=== PATIENT | male | born 1935 | race Caucasian/White ===

== ENCOUNTER 2019-04-22 09:04 | Emergency (ER) | payer MEDICARE, OTHER ==
[~2019-04-22] VITALS: Ht 177.8 cm; Wt 73.6 kg
[2019-04-22 09:06] VITALS: Ht 177.8 cm; Wt 73.6 kg
[2019-04-22] MEDS ORDERED: LIDOCAINE 2% JEL.PF.APP 5 ML UROJET SYRINGE MM ONE (09:30)
[2019-04-22] MEDS ORDERED: CIPR500T4 PO (09:57)
[2019-04-22 10:10] VITALS: BP 118/58; PULSE 88; RESP 16
--- NOTE | 2019-04-22 11:20 | ERD ---
ER Documentation Chief Complaint Chief Complaint unable to urinate since 0100 HPI Patient is an 83-year-old male with a history of prostate issues who presents with being unable to urinate. Since 1 PM yesterday he has had difficulty with urination. Today he cannot pee. The son does says that he is getting out "a little dribble" but feels like he cannot empty his bladder. He has no pain and no fevers. He does have a primary doctor and a urologist. ROS All systems reviewed and are negative except as per history of present illness. Medications Home Meds Active Scripts Ciprofloxacin Hcl* (Ciprofloxacin Hcl*) 500 Mg Tablet, 500 MG PO BID for 7 Days, TAB Prov:KADE LAKHANI MD 04/22/19 Allergies Allergies: Coded Allergies: No Known Allergy (Unverified , 04/22/19) PMhx/Soc History of Surgery: Yes (CABG) Anesthesia Reaction: No Hx Cardiac Disorders: Yes (Hypertension, hyperlipidemia) Hx Psychiatric Problems: No Hx Miscellaneous Medical Probl: Yes (BPH, thyroid CA) Hx Alcohol Use: No Hx Substance Use: No Hx Tobacco Use: No Smoking Status: Never smoker FmHx Family History: No diabetes Physical Exam Vitals Vital Signs Date Temp Pulse Resp B/P (MAP) Pulse Ox O2 O2 Flow FiO2 Time Delivery Rate 04/22/19 98.0 88 16 118/58 99 Room Air 10:10 (78) 04/22/19 98.0 74 14 112/56 99 09:06 (74) Physical Exam Const: No acute distress Head: Atraumatic Eyes: Normal Conjunctiva ENT: Normal External Ears, Nose and Mouth. Neck: Full range of motion. No meningismus. Resp: Clear to auscultation bilaterally Cardio: Regular rate and rhythm, no murmurs Abd: Soft, non tender, non distended. Normal bowel sounds Skin: No petechiae or rashes Back: No midline or flank tenderness Ext: No cyanosis, or edema Neur: Awake and alert Psych: Normal Mood and Affect Results 24 hrs Laboratory Tests Test 04/22/19 10:05 Bedside Urine pH (LAB) 5.5 Bedside Urine Protein (LAB) 1+ Bedside Urine Glucose (UA) Negative Bedside Urine Ketones (LAB) Negative Bedside Urine Blood Trace-lysed Bedside Urine Nitrite (LAB) Positive Bedside Urine Leukocyte Esterase (L 2+ Current Medications Medications Dose Sig/Rachid Start Time Status Last (Trade) Ordered Route PRN Stop Time Admin Dose Reason Admin Lidocaine 5 ml ONCE ONCE 04/22/19 DC 04/22/19 HCl MM 09:30 09:40 (Lidocaine 04/22/19 09:32 Urojet) Procedures/MDM Patient is an 83-year-old male who presents with urinary retention. A Donaldson catheter was placed in place to a leg bag. He was found to have acute cystitis with a urine dip. The patient will be given a prescription for Cipro twice a day for 7 days. He will need to follow-up with his urologist. He can return for any worsening symptoms. I do not believe he requires further work-up or admission of the hospital at this time. I doubt sepsis. Departure Diagnosis: Primary Impression: Retention of urine Additional Impression: Cystitis Condition: Fair Patient Instructions: Urinary Retention, Male Referrals: Dr. Augustin your Urologist Additional Instructions: SPECIALIST: YOU HAVE A MEDICAL CONDITION WHICH REQUIRES YOU TO SEE A SPECIALI ST WITHIN THE NEXT 1-2 DAYS. PLEASE FOLLOW UP WITH YOUR PRIMARY PHYSICIAN FOR REFFERAL.IF YOU DO NOT HAVE A PRIMARY CARE PHYSICIAN AND/OR YOU CAN NOT AFFORD TO SEE A PHYSICIAN THE FOLLOWING RESOURCES HAVE BEEN SUPPLIED TO YOU. IT IS YOUR RESPONSIBILITY TO BE SEEN BY THE SPECIALIST KADE LAKHANI MD Apr 22, 2019 11:20
[2019-04-22] MEDS ORDERED: RSV10T PO (16:35)
[2019-04-22] MEDS ORDERED: ICOS1CAP PO (16:36)
[2019-04-22] MEDS ORDERED: CYAN500T46 PO (16:36)
[2019-04-22] MEDS ORDERED: LEVO112T42 PO (16:37)
[2019-04-22] MEDS ORDERED: VALS80TA2 PO (16:37)
[2019-04-22] MEDS ORDERED: FINA5TAB4 PO (16:38)
[2019-04-22] MEDS ORDERED: BUDE6.9H INHALATION (16:38)
[2019-04-22] MEDS ORDERED: MIRA50TA PO (16:39)
[2019-04-22] MEDS ORDERED: TAMS-14 PO (16:39)
== END 2019-04-22 10:15 | disposition home or self-care (01) ==
LOC: E/R 09:04
DX: N30.90 Cystitis, unspecified without hematuria (principal); I10 Essential (primary) hypertension; Z85.850 Personal history of malignant neoplasm of thyroid; Z95.1 Presence of aortocoronary bypass graft
CPT/HCPCS: 81003

== ENCOUNTER 2019-04-22 14:49 | Inpatient (IN) | payer MEDICARE, OTHER ==
[~2019-04-22] VITALS: Ht 172.7 cm; Wt 73.0 kg
[~2019-04-22 14:49] MED LIST: BUDE6.9H INHALATION; CEFT1FRO2 IV; CIPR500T4 PO; CYAN500T46 PO; FINA5TAB4 PO; ICOS1CAP PO; LEVO112T42 PO; MIRA50TA PO; RSV10T PO; TAMS-14 PO; VALS80TA2 PO
[2019-04-22] MEDS ORDERED: ACETAMINOPHEN 325 MG TAB PO PRN ×2 (18:30→20:00)
[2019-04-22] MEDS ORDERED: ONDANSETRON 4 MG INJ IV PRN (18:30)
--- NOTE | 2019-04-22 19:04 | ERD ---
ER Documentation Chief Complaint Chief Complaint bleeding at cath insertion site HPI This is an 83-year-old male brought in by family with bleeding in his Donaldson catheter site. He was seen earlier today for urinary retention had a Donaldson catheter placed. Apparently took it was uncomfortable he been bleeding since. No fevers no chills no nausea no vomiting. No other current complaints. ROS All systems reviewed and are negative except as per history of present illness. Medications Home Meds Active Scripts Ciprofloxacin Hcl* (Ciprofloxacin Hcl*) 500 Mg Tablet, 500 MG PO BID for 7 Days, TAB Prov:KADE LAKHANI MD 04/22/19 Reported Medications Tamsulosin Hcl* (Flomax*) 0.4 Mg Cap.er.24h, 0.4 MG PO HS, CAP 04/22/19 Mirabegron (Myrbetriq) 50 Mg Tab.er.24h, 50 MG PO DAILY, TAB 04/22/19 Budesonide-Formoterol Fumarate* (Symbicort*) 80-4.5 Mcg Hfa.aer.ad, 2 PUFF INHALATION BID, BOTTLE 04/22/19 Finasteride* (Finasteride*) 5 Mg Tablet, 5 MG PO DAILY, TAB 04/22/19 Levothyroxine Sodium* (Levoxyl*) 112 Mcg Tablet, 112 MCG PO BEFORE BREAKFAST, #30 TAB 04/22/19 Valsartan* (Diovan*) 80 Mg Tablet, 80 MG PO DAILY, TAB 04/22/19 Cyanocobalamin* (Vitamin B12*) 500 Mcg Tab, 1000 MCG PO DAILY, TAB 04/22/19 Icosapent Ethyl (VASCEPA) 1 Gm Capsule, 2 GM PO BID, CAP 04/22/19 Rosuvastatin Calcium* (Crestor*) 10 Mg Tablet, 10 MG PO QHS, #30 TAB 04/22/19 Allergies Allergies: Coded Allergies: No Known Allergy (Unverified , 04/22/19) PMhx/Soc History of Surgery: Yes (CABG) Anesthesia Reaction: No Hx Cardiac Disorders: Yes (Hypertension, hyperlipidemia) Hx Psychiatric Problems: Yes (DEMENTIA) Hx Miscellaneous Medical Probl: Yes (BPH, thyroid CA) Hx Alcohol Use: No Hx Substance Use: No Hx Tobacco Use: No Smoking Status: Former smoker Physical Exam Vitals Vital Signs Date Temp Pulse Resp B/P (MAP) Pulse Ox O2 O2 Flow FiO2 Time Delivery Rate 04/22/19 98.5 83 15 120/60 98 Room Air 18:31 (80) 04/22/19 80 17 129/60 98 Room Air 17:43 (83) 04/22/19 99.3 90 18 97/58 (71) 97 14:52 Physical Exam Const: No acute distress Head: Atraumatic Eyes: Normal Conjunctiva ENT: Normal External Ears, Nose and Mouth. Neck: Full range of motion. No meningismus. Resp: Clear to auscultation bilaterally Cardio: Regular rate and rhythm, no murmurs Abd: Soft, non tender, non distended. Normal bowel sounds Skin: No petechiae or rashes Back: No midline or flank tenderness Ext: No cyanosis, or edema Neur: Awake and alert Psych: Normal Mood and Affect Result Diagram: 04/22/19 1740 04/22/19 1740 Results 24 hrs Laboratory Tests Test 04/22/19 17:40 White Blood Count 17.9 10^3/ul Red Blood Count 4.54 10^6/ul Hemoglobin 13.0 g/dl Hematocrit 38.9 % Mean Corpuscular Volume 85.7 fl Mean Corpuscular Hemoglobin 28.6 pg Mean Corpuscular Hemoglobin Concent 33.4 g/dl Red Cell Distribution Width 13.2 % Platelet Count 358 10^3/UL Mean Platelet Volume 9.1 fl Immature Granulocytes % 0.600 % Neutrophils % 78.2 % Lymphocytes % 9.2 % Monocytes % 9.4 % Eosinophils % 2.0 % Basophils % 0.6 % Nucleated Red Blood Cells % 0.0 /100WBC Immature Granulocytes # 0.110 10^3/ul Neutrophils # 14.0 10^3/ul Lymphocytes # 1.6 10^3/ul Monocytes # 1.7 10^3/ul Eosinophils # 0.4 10^3/ul Basophils # 0.1 10^3/ul Nucleated Red Blood Cells # 0.0 10^3/ul Prothrombin Time 13.6 Sec Prothrombin Time Ratio 1.1 INR International Normalized Ratio 1.03 Activated Partial Thromboplast Time 26.4 Sec Sodium Level 145 mmol/L Potassium Level 3.8 mmol/L Chloride Level 112 mmol/L Carbon Dioxide Level 23 mmol/L Anion Gap 10 Blood Urea Nitrogen 30 mg/dl Creatinine 1.38 mg/dl Est Glomerular Filtrat Rate mL/min mL/min Glucose Level 121 mg/dl Calcium Level 9.5 mg/dl Total Bilirubin 0.7 mg/dl Direct Bilirubin 0.00 mg/dl Indirect Bilirubin 0.7 mg/dl Aspartate Amino Transf (AST/SGOT) 25 IU/L Alanine Aminotransferase (ALT/SGPT) 22 IU/L Alkaline Phosphatase 76 IU/L Total Protein 7.1 g/dl Albumin 3.9 g/dl Globulin 3.20 g/dl Albumin/Globulin Ratio 1.21 Lipase 61 U/L Current Medications Medications Dose Sig/Rachid Start Time Status Last (Trade) Ordered Route PRN Stop Time Admin Dose Reason Admin Ondansetron 4 mg BRIDGE ORDER 04/22/19 HCl (Zofran PRN IV 18:30 Inj) NAUSEA/VOMITI 04/23/19 18:29 NG 650 mg ER BRIDGE 04/22/19 Acetaminophen PRN PO 18:30 (Tylenol .MILD PAIN 04/23/19 18:29 Tab) 1-3 OR TEMP Procedures/MDM Medical decision making: This patient has possible urethral trauma but definitely has urinary retention. Donaldson catheter has not been able to be replaced. Patient will be admitted to Dr. Seals service, Dr. Bhatia on-call. Dr. Scott from urology has kindly accepted patient to his service. Departure Diagnosis: Primary Impression: Retention of urine Additional Impressions: Genitourinary symptoms Complication of catheter Encounter type: initial encounter Qualified Codes: T85.9XXA - Unspecified complication of internal prosthetic device, implant and graft, initial encounter Condition: Serious YASIR JOSEPH Apr 22, 2019 19:03
[2019-04-22] MEDS ORDERED: NACL 0.9% 3 ML SYG IV SCH (20:00)
--- NOTE | 2019-04-22 20:16 | CONS ---
Assessment/Plan Assessment/Plan Hospital Course (Demo Recall) This is an 83-year-old male who was brought to the emergency room earlier this morning because of difficulty urinating. A Donaldson catheter was inserted and the patient was thought to have cystitis. He was placed on Cipro and discharged home with the Donaldson catheter and the leg bag. The patient returned this afternoon to the emergency room because of bleeding. I was told that he acc identally pulled the catheter. Attempts by the emergency room staff and physician to insert a new catheter were not successful. The patient was bleeding from his urethra. I came in and so the patient. I had a inside sales associate and the patient appeared to be confused and from the history he does have Al zheimer disease. His son who brought him to the hospital emergency room has left to work. On the examination his abdomen appeared to be soft and the bladder did not seem to be distended. I did a rectal exam on him and his prostate did not feel large. After that he felt the urge to urinate but again he was not able to do so. I went ahead and prepped the genital area and gave him 20 mL of 2% lid ocaine gel in the urethra for local anesthesia and waited 5 minutes for it to work. Then I inserted a 16 [place]ian coud catheter and that went in without any problem. Initially the urine came out clear then it turned bloody at the end. I therefore did hand irrigate the Donaldson catheter with normal saline until the return was completely clear. You clots came out. Connected the Donaldson to a drainage bag. Patient will be covered with antibiotic and once the urine is clear we may try to remove the catheter and see if he does void and check his postvoid residual. Consultation Date/Type/Reason Admit Date/Time April 22, 2019 Date of Consultation: Apr 22, 2019 Type of Consult Urology Reason for Consultation Gross hematuria and inability to insert a Donaldson catheter by the emergency room staff Requesting Provider: YASIR JOSEPH Date/Time of Note DATE: 04/22/19 TIME: 20:06 Hx of Present Illness This is an 83-year-old male who was brought to the emergency room earlier this morning because of difficulty urinating. A Donaldson catheter was inserted and the patient was thought to have cystitis. He was placed on Cipro and discharged home with the Donaldson catheter and the leg bag. The patient returned this afternoon to the emergency room because of bleeding. I was told that he accidentally pulled the catheter. Attempts by the emergency room staff and physician to insert a new catheter were not successful. The patient was bleeding from his urethra. I came in and so the patient. I had a inside sales associate and the patient appeared to be confused and from the history he does have Alzheimer disease. His son who brought him to the hospital emergency room has left to work. Constitutional: other (Patient denies having any pain, he appears to be comfortable.) Eyes: no complaints ENT: no complaints Respiratory: no complaints; No shortness of breath, No wheezing Cardiovascular: No chest pain Gastrointestinal: No nausea, No vomiting Genitourinary: hematuria, other (He feels he has to urinate but was unable to pass any urine) Musculoskeletal: no complaints Skin: no complaints Neurologic: confusion Endocrine: no complaints Lymphatic: no complaints Psychological: no complaints Past Medical History Medical History: coronary artery disease (History of coronary artery bypass graft), high cholesterol, hypertension, other (History of thyroid cancer) Home Meds Active Scripts Ciprofloxacin Hcl* (Ciprofloxacin Hcl*) 500 Mg Tablet, 500 MG PO BID for 7 Days, TAB Prov:KADE LAKHANI MD 04/22/19 Reported Medications Tamsulosin Hcl* (Flomax*) 0.4 Mg Cap.er.24h, 0.4 MG PO HS, CAP 04/22/19 Mirabegron (Myrbetriq) 50 Mg Tab.er.24h, 50 MG PO DAILY, TAB 04/22/19 Budesonide-Formoterol Fumarate* (Symbicort*) 80-4.5 Mcg Hfa.aer.ad, 2 PUFF INHALATION BID, BOTTLE 04/22/19 Finasteride* (Finasteride*) 5 Mg Tablet, 5 MG PO DAILY, TAB 04/22/19 Levothyroxine Sodium* (Levoxyl*) 112 Mcg Tablet, 112 MCG PO BEFORE BREAKFAST, #30 TAB 04/22/19 Valsartan* (Diovan*) 80 Mg Tablet, 80 MG PO DAILY, TAB 04/22/19 Cyanocobalamin* (Vitamin B12*) 500 Mcg Tab, 1000 MCG PO DAILY, TAB 04/22/19 Icosapent Ethyl (VASCEPA) 1 Gm Capsule, 2 GM PO BID, CAP 04/22/19 Rosuvastatin Calcium* (Crestor*) 10 Mg Tablet, 10 MG PO QHS, #30 TAB 04/22/19 Medications Current Medications Ondansetron HCl (Zofran Inj) 4 mg BRIDGE ORDER PRN IV NAUSEA/VOMITING; Start 04/22/19 at 18:30; Stop 04/23/19 at 18:29 Acetaminophen (Tylenol Tab) 650 mg ER BRIDGE PRN PO .MILD PAIN 1-3 OR TEMP; Start 04/22/19 at 18:30; Stop 04/23/19 at 18:29 IV Flush (NS 3 ml) 3 ml PER PROTOCOL IV ; Start 04/22/19 at 20:00; Status UNV Acetaminophen (Tylenol Tab) 650 mg Q6H PRN PO .PAIN 1-3 OR TEMP; Start 04/22/19 at 20:00; Status UNV Morphine Sulfate (morphine) 2 mg Q4H PRN IV .SEVERE PAIN 7-10; Start 04/22/19 at 20:00; Status UNV Famotidine (Pepcid Iv) 20 mg Q12 IV ; Start 04/22/19 at 21:00; Status UNV Allergies: Coded Allergies: No Known Allergy (Unverified , 04/22/19) Past Surgical History Past Surgical Hx: coronary bypass surgery Social History Alcohol Use: none Smoking Status: Former smoker Drug Use: none Exam/Review of Systems Exam Vitals Vital Signs Date Temp Pulse Resp B/P (MAP) Pulse Ox O2 O2 Flow FiO2 Time Delivery Rate 04/22/19 98.5 83 15 120/60 98 Room Air 18:31 (80) Psych: confusion, other (Patient has a history of Alzheimer) Head: normocephalic Eyes: nl conjunctiva ENMT: nl external ears & nose Neck: supple, non-tender Respiratory: normal air movement; No wheezing Cardiovascular: No jugular venous distention (JVD) Gastrointestinal: soft, non-tender Genitourinary - Male: other (Has urethral bleeding. Rectal exam the prostate did not feel large.) Musculoskeletal: nl extremities to inspection Extremities: No calf tenderness Neurological: confused Skin: nl turgor Results Result Diagram: 04/22/19 1740 04/22/19 1740 Results 24hrs Laboratory Tests Test 04/22/19 17:40 White Blood Count 17.9 H Red Blood Count 4.54 L Hemoglobin 13.0 L Hematocrit 38.9 L Mean Corpuscular Volume 85.7 Mean Corpuscular Hemoglobin 28.6 L Mean Corpuscular Hemoglobin Concent 33.4 Red Cell Distribution Width 13.2 Platelet Count 358 Mean Platelet Volume 9.1 Immature Granulocytes % 0.600 H Neutrophils % 78.2 H Lymphocytes % 9.2 L Monocytes % 9.4 Eosinophils % 2.0 Basophils % 0.6 Nucleated Red Blood Cells % 0.0 Immature Granulocytes # 0.110 H Neutrophils # 14.0 H Lymphocytes # 1.6 Monocytes # 1.7 H Eosinophils # 0.4 Basophils # 0.1 Nucleated Red Blood Cells # 0.0 Prothrombin Time 13.6 Prothrombin Time Ratio 1.1 INR International Normalized Ratio 1.03 Activated Partial Thromboplast Time 26.4 Sodium Level 145 H Potassium Level 3.8 Chloride Level 112 H Carbon Dioxide Level 23 Anion Gap 10 Blood Urea Nitrogen 30 H Creatinine 1.38 H Est Glomerular Filtrat Rate mL/min Glucose Level 121 Calcium Level 9.5 Total Bilirubin 0.7 Direct Bilirubin 0.00 Indirect Bilirubin 0.7 Aspartate Amino Transf (AST/SGOT) 25 Alanine Aminotransferase (ALT/SGPT) 22 Alkaline Phosphatase 76 Total Protein 7.1 Albumin 3.9 Globulin 3.20 Albumin/Globulin Ratio 1.21 Lipase 61 Medications Medication Current Medications Ondansetron HCl (Zofran Inj) 4 mg BRIDGE ORDER PRN IV NAUSEA/VOMITING; Start 04/22/19 at 18:30; Stop 04/23/19 at 18:29 Acetaminophen (Tylenol Tab) 650 mg ER BRIDGE PRN PO .MILD PAIN 1-3 OR TEMP; Start 04/22/19 at 18:30; Stop 04/23/19 at 18:29 IV Flush (NS 3 ml) 3 ml PER PROTOCOL IV ; Start 04/22/19 at 20:00; Status UNV Acetaminophen (Tylenol Tab) 650 mg Q6H PRN PO .PAIN 1-3 OR TEMP; Start 04/22/19 at 20:00; Status UNV Morphine Sulfate (morphine) 2 mg Q4H PRN IV .SEVERE PAIN 7-10; Start 04/22/19 at 20:00; Status UNV Famotidine (Pepcid Iv) 20 mg Q12 IV ; Start 04/22/19 at 21:00; Status UNV FABY SOLITARIO MD Apr 22, 2019 20:16
[2019-04-22] MEDS: CEFTRIAXONE 1 GM/50 ML (PMX) 50 ML IVPB SCH (20:47)
[2019-04-22 21:22] VITALS: Ht 172.7 cm; Wt 73.0 kg
[2019-04-22 21:25] VITALS: BP 151/67; PULSE 79; RESP 18
[2019-04-22] MEDS: FAMOTIDINE 20 MG INJ IV SCH (22:00)
[2019-04-23] MEDS: morphine 2 MG INJ IV PRN (01:07)
[2019-04-23 02:04] VITALS: BP 153/69; PULSE 78; RESP 17
[2019-04-23 07:38] VITALS: BP 145/65; PULSE 80; RESP 18
[2019-04-23] MEDS: CEFTRIAXONE 1 GM/50 ML (PMX) 50 ML IVPB SCH (09:47)
[2019-04-23 14:46] VITALS: BP 143/68; PULSE 80; RESP 18
--- NOTE | 2019-04-23 15:09 | HP ---
Date/Time of Note Date/Time of Note DATE: 04/23/19 TIME: 15:05 Assessment/Plan VTE Prophylaxis Risk score (from [facility] [place]0 risk: 6 SCD applied (from [facility] [place]): Yes Pharmacological prophylaxis: LMWH Lines/Catheters IV Catheter Type (from [facility]): Peripheral IV Urinary Cath still in place: Yes Reason Cath still needed: urinary retention Assessment/Plan Hospital Course 1) urinary retention - joseph on hold per urology - monitor 2) UTI - IV antibiotics Result Diagram: 04/23/197 04/23/197 Results 24hrs Laboratory Tests Test 04/22/19 17:40 04/22/19 20:37 04/22/19 20:54 04/23/19 04:47 White Blood Count 17.9 H 15.0 H Red Blood Count 4.54 L 4.57 L Hemoglobin 13.0 L 13.0 L Hematocrit 38.9 L 39.5 L Mean Corpuscular 85.7 86.4 Volume Mean Corpuscular 28.6 L 28.4 L Hemoglobin Mean Corpuscular 33.4 32.9 Hemoglobin Concent Red Cell 13.2 13.3 Distribution Width Platelet Count 358 337 Mean Platelet Volume 9.1 9.4 Immature 0.600 H 0.500 H Granulocytes % Neutrophils % 78.2 H 72.5 Lymphocytes % 9.2 L 12.8 L Monocytes % 9.4 11.0 Eosinophils % 2.0 2.3 Basophils % 0.6 0.9 Nucleated Red Blood 0.0 0.0 Cells % Immature 0.110 H 0.080 H Granulocytes # Neutrophils # 14.0 H 10.9 H Lymphocytes # 1.6 1.9 Monocytes # 1.7 H 1.7 H Eosinophils # 0.4 0.4 Basophils # 0.1 0.1 Nucleated Red Blood 0.0 0.0 Cells # Prothrombin Time 13.6 Prothrombin Time 1.1 Ratio INR International 1.03 Normalized Ratio Activated 26.4 Partial Thromboplast Time Sodium Level 145 H 146 H Potassium Level 3.8 3.7 Chloride Level 112 H 112 H Carbon Dioxide Level 23 26 Anion Gap 10 8 Blood Urea Nitrogen 30 H 25 H Creatinine 1.38 H 1.21 Est Glomerular Filtrat Rate mL/min Glucose Level 121 112 Calcium Level 9.5 9.3 Total Bilirubin 0.7 0.7 Direct Bilirubin 0.00 0.00 Indirect Bilirubin 0.7 0.7 Aspartate Amino 25 25 Transf (AST/SGOT) Alanine 22 20 Aminotransferase (AL T/SGPT) Alkaline Phosphatase 76 61 Total Protein 7.1 6.6 Albumin 3.9 3.6 Globulin 3.20 3.00 Albumin/Globulin 1.21 1.20 Ratio Lipase 61 Lactic Acid Level 0.9 Urine Color THUAN Urine Clarity CLOUDY A Urine pH 6.0 Urine Specific 1.014 [place] Urine Ketones NEGATIVE Urine Nitrite NEGATIVE Urine Bilirubin NEGATIVE Urine Urobilinogen NEGATIVE Urine Leukocyte TRACE A Esterase Urine Microscopic > 182 H RBC Urine Microscopic > 182 H WBC Urine Hemoglobin 3+ H Urine Glucose NEGATIVE Urine Total Protein 2+ H Hemoglobin A1c 5.4 HPI/ROS Admit Date/Time Admit Date/Time April 22, 2019 Hx of Present Illness Patient with dementia was admitted after being seen in the ER earlier in the day and was found to have urinary retention and uti. Patient had a joseph placed and sent home on antibiotics. Patient return and he seemingly had pulled out the f oley catheter. ER tried to reinsert without success and so he is admitted for further treatment. PMH/Family/Social Past Medical History Medical History: coronary artery disease (History of coronary artery bypass graft), high cholesterol, hypertension, other (History of thyroid cancer) Medications Current Medications Ondansetron HCl (Zofran Inj) 4 mg BRIDGE ORDER PRN IV NAUSEA/VOMITING; Start 04/22/19 at 18:30; Stop 04/23/19 at 18:29 IV Flush (NS 3 ml) 3 ml PER PROTOCOL IV Last administered on 04/22/19at 22:00; Admin Dose 3 ML; Start 04/22/19 at 20:00 Acetaminophen (Tylenol Tab) 650 mg Q6H PRN PO .PAIN 1-3 OR TEMP; Start 04/22/19 at 20:00 Morphine Sulfate (morphine) 2 mg Q4H PRN IV .SEVERE PAIN 7-10 Last administered on 04/23/19at 01:07; Admin Dose 2 MG; Start 04/22/19 at 20:00 Famotidine (Pepcid Iv) 20 mg Q24H IV Last administered on 04/22/19at 22:00; Admin Dose 20 MG; Start 04/22/19 at 21:00 Ceftriaxone Sodium 50 ml @ 100 mls/hr DAILY IVPB Last administered on 04/23/19at 09:47; Admin Dose 100 MLS/HR; Start 04/22/19 at 20:30 Coded Allergies: No Known Allergy (Unverified , 04/22/19) Past Surgical History Past Surgical Hx: coronary bypass surgery Social History Alcohol Use: none Smoking Status: Former smoker Drug Use: none Exam/Review of Systems Vital Signs Vitals Vital Signs Date Temp Pulse Resp B/P (MAP) Pulse Ox O2 O2 Flow FiO2 Time Delivery Rate 04/23/19 99.4 80 18 143/68 97 Room Air 14:46 (93) Intake and Output 04/22/19 04/22/19 04/23/19 1515:00 23:00 07:00 IntakeIntake Total 50 ml BalanceBalance 50 ml Exam Constitutional: well developed Head: normocephalic, atraumatic Neck: supple Respiratory: clear to auscultation Gastrointestinal: soft, non-tender Extremities: normal pulses TAMIA CARO Apr 23, 2019 15:09
--- NOTE | 2019-04-23 18:58 | CONS ---
Consult Date/Type/Reason Admit Date/Time Apr 22, 2019 at 18:15 Initial Consult Date 04/22/19 Type of Consultation: Urology Reason for Consultation Gross hematuria after the patient pulled out his own catheter Requesting Provider: YASIR JOSEPH Date/Time of Note DATE: 04/23/19 TIME: 18:52 Subjective The patient is confused and again today he pulled out the Donaldson catheter causing himself to bleed Objective Vitals Vital Signs Date Temp Pulse Resp B/P (MAP) Pulse Ox O2 O2 Flow FiO2 Time Delivery Rate 04/23/19 99.4 80 18 143/68 97 Room Air 14:46 (93) Intake and Output 04/22/19 04/22/19 04/23/19 1515:00 23:00 07:00 IntakeIntake Total 50 ml BalanceBalance 50 ml Exam The patient appears to be comfortable, his bladder is not distended. He does have a blood on his genital area and inner thighs. Results/Medications Result Diagram: 04/23/19 0447 04/23/19 0447 Results 24 hrs Laboratory Tests Test 04/22/19 20:37 04/22/19 20:54 04/23/19 04:47 Lactic Acid Level 0.9 Urine Color THUAN Urine Clarity CLOUDY A Urine pH 6.0 Urine Specific [place] 1.014 Urine Ketones NEGATIVE Urine Nitrite NEGATIVE Urine Bilirubin NEGATIVE Urine Urobilinogen NEGATIVE Urine Leukocyte Esterase TRACE A Urine Microscopic RBC > 182 H Urine Microscopic WBC > 182 H Urine Hemoglobin 3+ H Urine Glucose NEGATIVE Urine Total Protein 2+ H White Blood Count 15.0 H Red Blood Count 4.57 L Hemoglobin 13.0 L Hematocrit 39.5 L Mean Corpuscular Volume 86.4 Mean Corpuscular Hemoglobin 28.4 L Mean Corpuscular Hemoglobin Concent 32.9 Red Cell Distribution Width 13.3 Platelet Count 337 Mean Platelet Volume 9.4 Immature Granulocytes % 0.500 H Neutrophils % 72.5 Lymphocytes % 12.8 L Monocytes % 11.0 Eosinophils % 2.3 Basophils % 0.9 Nucleated Red Blood Cells % 0.0 Immature Granulocytes # 0.080 H Neutrophils # 10.9 H Lymphocytes # 1.9 Monocytes # 1.7 H Eosinophils # 0.4 Basophils # 0.1 Nucleated Red Blood Cells # 0.0 Sodium Level 146 H Potassium Level 3.7 Chloride Level 112 H Carbon Dioxide Level 26 Anion Gap 8 Blood Urea Nitrogen 25 H Creatinine 1.21 Est Glomerular Filtrat Rate mL/min Glucose Level 112 Hemoglobin A1c 5.4 Calcium Level 9.3 Total Bilirubin 0.7 Direct Bilirubin 0.00 Indirect Bilirubin 0.7 Aspartate Amino Transf (AST/SGOT) 25 Alanine Aminotransferase (ALT/SGPT) 20 Alkaline Phosphatase 61 Total Protein 6.6 Albumin 3.6 Globulin 3.00 Albumin/Globulin Ratio 1.20 Home Meds Active Scripts Ciprofloxacin Hcl* (Ciprofloxacin Hcl*) 500 Mg Tablet, 500 MG PO BID for 7 Days, TAB Prov:KADE LAKHANI MD 04/22/19 Reported Medications Tamsulosin Hcl* (Flomax*) 0.4 Mg Cap.er.24h, 0.4 MG PO HS, CAP 04/22/19 Mirabegron (Myrbetriq) 50 Mg Tab.er.24h, 50 MG PO DAILY, TAB 04/22/19 Budesonide-Formoterol Fumarate* (Symbicort*) 80-4.5 Mcg Hfa.aer.ad, 2 PUFF INHALATION BID, BOTTLE 04/22/19 Finasteride* (Finasteride*) 5 Mg Tablet, 5 MG PO DAILY, TAB 04/22/19 Levothyroxine Sodium* (Levoxyl*) 112 Mcg Tablet, 112 MCG PO BEFORE BREAKFAST, #30 TAB 04/22/19 Valsartan* (Diovan*) 80 Mg Tablet, 80 MG PO DAILY, TAB 04/22/19 Cyanocobalamin* (Vitamin B12*) 500 Mcg Tab, 1000 MCG PO DAILY, TAB 04/22/19 Icosapent Ethyl (VASCEPA) 1 Gm Capsule, 2 GM PO BID, CAP 04/22/19 Rosuvastatin Calcium* (Crestor*) 10 Mg Tablet, 10 MG PO QHS, #30 TAB 04/22/19 Medications Current Medications IV Flush (NS 3 ml) 3 ml PER PROTOCOL IV Last administered on 04/22/19at 22:00; Admin Dose 3 ML; Start 04/22/19 at 20:00 Acetaminophen (Tylenol Tab) 650 mg Q6H PRN PO .PAIN 1-3 OR TEMP; Start 04/22/19 at 20:00 Morphine Sulfate (morphine) 2 mg Q4H PRN IV .SEVERE PAIN 7-10 Last administered on 7/29/19at 01:07; Admin Dose 2 MG; Start 04/22/19 at 20:00 Famotidine (Pepcid Iv) 20 mg Q24H IV Last administered on 04/22/19at 22:00; Admin Dose 20 MG; Start 04/22/19 at 21:00 Ceftriaxone Sodium 50 ml @ 100 mls/hr DAILY IVPB Last administered on 04/23/19at 09:47; Admin Dose 100 MLS/HR; Start 04/22/19 at 20:30 Lorazepam (Ativan) 0.5 mg Q6H PRN IV AGITATION/ANXIETY; Start 04/23/19 at 16:[address] scan of the abdomen and pelvis without contrast is still pending Assessment/Plan Hospital Course (Demo Recall) This is an 83-year-old male who was brought to the emergency room earlier on April 22, 2019 because of difficulty urinating. A Donaldson catheter was inserted and the patient was thought to have cystitis. He was placed on Cipro and discharged home with the Donaldson catheter and the leg bag. The patient returned the same day to the emergency room because of bleeding. I was told that he accidentally pulled the catheter. Attempts by the emergency room staff and physician to insert a new catheter were not successful. The patient was bleeding from his urethra. I came in and saw the patient. I had a molded rubber goods cutter and the patient appeared to be confused and from the history he does have Alzheimer disease. His son who brought him to the hospital emergency room has left to work. On the examination his abdomen appeared to be soft and the bladder did not seem to be distended. I did a rectal exam on him and his prostate did not feel large. After that he felt the urge to urinate but again he was not able to do so. I went ahead and prepped the genital area and gave him 20 mL of 2% lidocaine gel in the urethra for local anesthesia and waited 5 minutes for it to work. Then I inserted a 16 [place] coud catheter and that went in without any problem. Initially the urine came out clear then it turned bloody at the end. I therefore did hand irrigate the Donaldson catheter with normal saline until the return was completely clear. Few clots came out. Connected the Donaldson to a drainage bag. Patient is covered with antibiotic the patient pulled out his Donaldson catheter earlier. So for now we are waiting for him to have the CT scan of the abdomen and pelvis without contrast. Then will decide whether to insert another catheter for him or just leave him alone. This is a second time he pulled out his Donaldson catheter FABY SOLITARIO MD Apr 23, 2019 18:58
[2019-04-23] MEDS: LORAZEPAM 2 MG INJ IV PRN (20:57)
[2019-04-23 21:12] VITALS: BP 151/68; PULSE 79; RESP 18
[2019-04-23] MEDS: FAMOTIDINE 20 MG INJ IV SCH (21:23)
[2019-04-23] MEDS: HALOPERIDOL 5 MG INJ IM PRN (21:54)
[2019-04-24] MEDS: HALOPERIDOL 5 MG INJ IM PRN (04:18)
[2019-04-24 07:27] VITALS: BP 138/65; PULSE 84; RESP 18
[2019-04-24] MEDS ORDERED: NA PHOSPHATE/BIPHOS 133 ML ENEMA PR ONE (09:00)
[2019-04-24] MEDS ORDERED: NA PHOSPHATE/BIPHOS 133 ML ENEMA PR PRN (09:00)
[2019-04-24] MEDS: CEFTRIAXONE 1 GM/50 ML (PMX) 50 ML IVPB SCH (09:41)
[2019-04-24] MEDS: BALSAM PERU/CASTOR OIL 60 GM TUBE TOP SCH (09:41)
--- NOTE | 2019-04-24 13:02 | CONS ---
Consult Date/Type/Reason Admit Date/Time Apr 24, 2019 at 08:24 Initial Consult Date 04/22/19 Type of Consultation: Urology Reason for Consultation Gross hematuria after pulling the Donaldson catheter accidentally by the patient Requesting Provider: YASIR JOSEPH Date/Time of Note DATE: 04/24/19 TIME: 12:56 Subjective The patient is confused and he pulled out the Donaldson catheter for the second time on 04/23/2019. Objective Vitals Vital Signs Date Temp Pulse Resp B/P (MAP) Pulse Ox O2 O2 Flow FiO2 Time Delivery Rate 04/24/19 97.6 84 18 138/65 96 07:27 (89) 04/23/19 Room Air 21:12 Intake and Output 04/23/19 04/23/19 04/24/19 1414:59 22:59 06:59 IntakeIntake Total 360 ml 170 ml OutputOutput Total 600 ml 450 ml BalanceBalance -240 ml -280 ml Exam The abdomen is soft and the bladder does not seem to be distended. Results/Medications Result Diagram: 04/23/19 0447 04/23/19446 Home Meds Active Scripts Ciprofloxacin Hcl* (Ciprofloxacin Hcl*) 500 Mg Tablet, 500 MG PO BID for 7 Days, TAB Prov:KADE LAKHANI MD 04/22/19 Reported Medications Tamsulosin Hcl* (Flomax*) 0.4 Mg Cap.er.24h, 0.4 MG PO HS, CAP 04/22/19 Mirabegron (Myrbetriq) 50 Mg Tab.er.24h, 50 MG PO DAILY, TAB 04/22/19 Budesonide-Formoterol Fumarate* (Symbicort*) 80-4.5 Mcg Hfa.aer.ad, 2 PUFF INHALATION BID, BOTTLE 04/22/19 Finasteride* (Finasteride*) 5 Mg Tablet, 5 MG PO DAILY, TAB 04/22/19 Levothyroxine Sodium* (Levoxyl*) 112 Mcg Tablet, 112 MCG PO BEFORE BREAKFAST, #30 TAB 04/22/19 Valsartan* (Diovan*) 80 Mg Tablet, 80 MG PO DAILY, TAB 04/22/19 Cyanocobalamin* (Vitamin B12*) 500 Mcg Tab, 1000 MCG PO DAILY, TAB 04/22/19 Icosapent Ethyl (VASCEPA) 1 Gm Capsule, 2 GM PO BID, CAP 04/22/19 Rosuvastatin Calcium* (Crestor*) 10 Mg Tablet, 10 MG PO QHS, #30 TAB 04/22/19 Medications Current Medications IV Flush (NS 3 ml) 3 ml PER PROTOCOL IV Last administered on 04/22/19at 22:00; Admin Dose 3 ML; Start 04/22/19 at 20:00 Acetaminophen (Tylenol Tab) 650 mg Q6H PRN PO .PAIN 1-3 OR TEMP; Start 04/22/19 at 20:00 Morphine Sulfate (morphine) 2 mg Q4H PRN IV .SEVERE PAIN 7-10 Last administered on 04/23/19at 01:07; Admin Dose 2 MG; Start 04/22/19 at 20:00 Famotidine (Pepcid Iv) 20 mg Q24H IV Last administered on 04/23/19at 21:23; Admin Dose 20 MG; Start 04/22/19 at 21:00 Ceftriaxone Sodium 50 ml @ 100 mls/hr DAILY IVPB Last administered on 04/24/19a t 09:41; Admin Dose 100 MLS/HR; Start 04/22/19 at 20:30 Lorazepam (Ativan) 0.5 mg Q6H PRN IV AGITATION/ANXIETY Last administered on 04/23/19at 20:57; Admin Dose 0.5 MG; Start 04/23/19 at 16:00 Haloperidol (Haldol) 5 mg Q6H PRN IM agitation Last administered on 04/24/19at 04:18; Admin Dose 5 MG; Start 04/23/19 at 22:00 Sodium Biphosphate/ Sodium Phosphate (Fleet Enema) 133 ml DAILY PRN [place] CONSTIPA TION; Start 04/24/19 at 09:[address] scan of the abdomen and pelvis without contrast 1. Bladder is partially filled and contains gas that may be from recent catheterization. Recommend correlation with the procedure history. In the absence of recent instrumentation, gas in the urinary bladder would be concerning for emphysematous cystitis. Recommend correlation with urinalysis. 2. Centrilobular ground-glass opacities at bilateral lung bases is concerning for multifocal bronchopneumonia. This is incompletely evaluated. 3. Cholelithiasis without evidence of complications. 4. Atherosclerosis of the abdominal aorta. 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 Please note that in the absence of intravenous contrast the study does not evaluate the patency of the vasculature. Assessment/Plan Hospital Course (Demo Recall) This is an 83-year-old male who was brought to the emergency room earlier on April 22, 2019 because of difficulty urinating. A Donaldson catheter was inserted and the patient was thought to have cystitis. He was placed on Cipro and discharged home with the Donaldson catheter and the leg bag. The patient returned the same day to the emergency room because of bleeding. I was told that he accidentally pulled the catheter. Attempts by the emergency room staff and physician to insert a new catheter were not successful. The patient was bleeding from his urethra. I came in and saw the patient. I had a assistive technology specialist and the patient appeared to be confused and from the history he does have Alzheimer disease. His son who brought him to the hospital emergency room has left to work. After his admission I inserted a Donaldson catheter for him. And the catheter was draining well. However the patient pulled out the catheter again. CT scan of the abdomen and pelvis was done and that showed: 1. Bladder is partially filled and contains gas that may be from recent catheterization. Recommend correlation with the procedure history. In the absence of recent instrumentation, gas in the urinary bladder would be concerning for emphysematous cystitis. Recommend correlation with urinalysis. 2. Centrilobular ground-glass opacities at bilateral lung bases is concerning for multifocal bronchopneumonia. This is incompletely evaluated. 3. Cholelithiasis without evidence of complications. 4. Atherosclerosis of the abdominal aorta. 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 Please note that in the absence of intravenous contrast the study does not evaluate the patency of the vasculature. Presently the bladder does not appear to be distended. If we insert another catheter for him he may pull it out or pull on it causing himself to bleed more. Therefore I recommend to check his bladder was a bladder scan and do straight cath on him if his postvoid residual is over 300 mL or if he does not void and the bladder scan shows over 500 mL. FABY SOLITARIO MD Apr 24, 2019 13:02
[2019-04-24 14:28] VITALS: BP 156/72; PULSE 73; RESP 20
--- NOTE | 2019-04-24 15:24 | PN ---
Date/Time of Note Date/Time of Note DATE: 04/24/19 TIME: 15:23 Assessment/Plan VTE Prophylaxis Risk score (from Ns)>0 risk: 3 SCD applied (from Ns): Yes Pharmacological prophylaxis: LMWH Lines/Catheters [facility] Peripheral IV Urinary Cath still in place: No Assessment/Plan Hospital Course 1) urinary retention - joseph on hold per urology - monitor 2) UTI - IV antibiotics Result Diagram: 04/23/197 04/23/19446 Subjective 24 Hr Interval Summary Free Text/Dictation Patient is confused because of dementia and so do not follow orders. He continuously pulls on the joseph catheter. Exam/Review of Systems Exam Vitals Vital Signs Date Temp Pulse Resp B/P (MAP) Pulse Ox O2 O2 Flow FiO2 Time Delivery Rate 04/24/19 97.4 73 20 156/72 96 14:28 (100) 04/23/19 Room Air 21:12 Intake and Output 04/23/19 04/23/19 04/24/19 1515:00 23:00 07:00 IntakeIntake Total 360 ml 170 ml OutputOutput Total 600 ml 450 ml BalanceBalance -240 ml -280 ml Constitutional: well developed Head: normocephalic, atraumatic Neck: supple Respiratory: diminished breath sounds Cardiovascular: regular rate and rhythm Gastrointestinal: soft, non-tender Medications Medication Current Medications IV Flush (NS 3 ml) 3 ml PER PROTOCOL IV Last administered on 04/22/19at 22:00; Admin Dose 3 ML; Start 04/22/19 at 20:00 Acetaminophen (Tylenol Tab) 650 mg Q6H PRN PO .PAIN 1-3 OR TEMP; Start 04/22/19 at 20:00 Morphine Sulfate (morphine) 2 mg Q4H PRN IV .SEVERE PAIN 7-10 Last administered on 04/23/19at 01:07; Admin Dose 2 MG; Start 04/22/19 at 20:00 Famotidine (Pepcid Iv) 20 mg Q24H IV Last administered on 04/23/19at 21:23; Admin Dose 20 MG; Start 04/22/19 at 21:00 Ceftriaxone Sodium 50 ml @ 100 mls/hr DAILY IVPB Last administered on at 09:41; Admin Dose 100 MLS/HR; Start 04/22/19 at 20:30 Lorazepam (Ativan) 0.5 mg Q6H PRN IV AGITATION/ANXIETY Last administered on 04/23/19at 20:57; Admin Dose 0.5 MG; Start 04/23/19 at 16:00 Haloperidol (Haldol) 5 mg Q6H PRN IM agitation Last administered on 04/24/19at 04:18; Admin Dose 5 MG; Start 04/23/19 at 22:00 Sodium Biphosphate/ Sodium Phosphate (Fleet Enema) 133 ml DAILY PRN [place] CONST IPATION; Start 04/24/19 at 09:00 TAMIA CARO Apr 24, 2019 15:24
[2019-04-24] MEDS: morphine 2 MG INJ IV PRN ×2 (17:26→22:27)
[2019-04-24 19:49] VITALS: BP 133/61; PULSE 76; RESP 18
[2019-04-24] MEDS: FAMOTIDINE 20 MG INJ IV SCH (20:26)
[2019-04-25 02:25] VITALS: BP 131/64; PULSE 77; RESP 20
[2019-04-25 07:22] VITALS: BP 146/65; PULSE 72; RESP 16
[2019-04-25] MEDS: BALSAM PERU/CASTOR OIL 60 GM TUBE TOP SCH (08:34)
[2019-04-25] MEDS: CEFTRIAXONE 1 GM/50 ML (PMX) 50 ML IVPB SCH (08:34)
--- NOTE | 2019-04-25 11:10 | PN ---
Date/Time of Note Date/Time of Note DATE: 04/25/19 TIME: 11:09 Assessment/Plan VTE Prophylaxis Risk score (from Ns)>0 risk: 6 SCD applied (from Nsg): Yes Pharmacological prophylaxis: LMWH Lines/Catheters IV Catheter Type (from Nrsg): [place]ine Lock Urinary Cath still in place: Yes Reason Cath still needed: urinary retention Assessment/Plan Hospital Course 1) urinary retention - joseph on hold per urology - monitor 2) UTI - IV antibiotics Result Diagram: 04/23/1944604/23/19446 Results 24hrs Laboratory Tests Test 04/24/19 15:41 Prostate Specific Antigen 0.2 Subjective 24 Hr Interval Summary Free Text/Dictation Patient is more calm, joseph catheter in place Exam/Review of Systems Exam Vitals Vital Signs Date Temp Pulse Resp B/P (MAP) Pulse Ox O2 O2 Flow FiO2 Time Delivery Rate 04/25/19 98.5 72 16 146/65 96 07:22 (92) 04/23/19 Room Air 21:12 Intake and Output 04/24/19 04/24/19 04/25/19 1515:00 23:00 07:00 IntakeIntake Total 530 ml 240 ml 120 ml OutputOutput Total 700 ml BalanceBalance 530 ml 240 ml -580 ml Constitutional: well developed Head: normocephalic, atraumatic Neck: supple Respiratory: diminished breath sounds Cardiovascular: regular rate and rhythm Gastrointestinal: soft, non-tender Extremities: normal pulses Results Results 24hrs Laboratory Tests Test 04/24/19 15:41 Prostate Specific Antigen 0.2 Medications Medication Current Medications IV Flush (NS 3 ml) 3 ml PER PROTOCOL IV Last administered on 04/22/19at 22:00; Admin Dose 3 ML; Start 04/22/19 at 20:00 Acetaminophen (Tylenol Tab) 650 mg Q6H PRN PO .PAIN 1-3 OR TEMP Last administered on 04/24/19 17:50; Admin Dose 650 MG; Start 04/22/19 at 20:00 Morphine Sulfate (morphine) 2 mg Q4H PRN IV .SEVERE PAIN 7-10 Last administered on 04/24/19at 22:27; Admin Dose 2 MG; Start 04/22/19 at 20:00 Famotidine (Pepcid Iv) 20 mg Q24H IV Last administered on 7/30/19at 20:26; Admin Dose 20 MG; Start 04/22/19 at 21:00 Ceftriaxone Sodium 50 ml @ 100 mls/hr DAILY IVPB Last administered on 04/25/19at 08:34; Admin Dose 100 MLS/HR; Start 04/22/19 at 20:30 Lorazepam (Ativan) 0.5 mg Q6H PRN IV AGITATION/ANXIETY Last administered on 04/23/19at 20:57; Admin Dose 0.5 MG; Start 04/23/19 at 16:00 Haloperidol (Haldol) 5 mg Q6H PRN IM agitation Last administered on 04/24/19at 04:18; Admin Dose 5 MG; Start 04/23/19 at 22:00 Sodium Biphosphate/ Sodium Phosphate (Fleet Enema) 133 ml DAILY PRN [place] CONSTIPATION; Start 04/24/19 at 09:00 TAMIA CARO Apr 25, 2019 11:10
[2019-04-25 14:04] VITALS: BP 146/67; PULSE 83; RESP 16
[2019-04-25] MEDS: HALOPERIDOL 5 MG INJ IM PRN ×2 (15:57→22:03)
[2019-04-25] MEDS: LORAZEPAM 2 MG INJ IV PRN ×2 (16:57→23:20)
[2019-04-25] MEDS: morphine 2 MG INJ IV PRN (18:20)
--- NOTE | 2019-04-25 18:54 | CONS ---
Consult Date/Type/Reason Admit Date/Time Apr 24, 2019 at 08:24 Initial Consult Date 04/22/19 Type of Consultation: Urology Reason for Consultation Urinary retention and hematuria from pulling the Donaldson catheter out Requesting Provider: YASIR JOSEPH Date/Time of Note DATE: 04/25/19 TIME: 18:52 Subjective The patient has episodes of confusion. He just received pain medications Objective Vitals Vital Signs Date Temp Pulse Resp B/P (MAP) Pulse Ox O2 O2 Flow FiO2 Time Delivery Rate 04/25/19 98.5 83 16 146/67 97 14:04 (93) 04/23/19 Room Air 21:12 Intake and Output 04/24/19 04/24/19 04/25/19 1515:00 23:00 07:00 IntakeIntake Total 530 ml 240 ml 120 ml OutputOutput Total 700 ml BalanceBalance 530 ml 240 ml -580 ml Exam The Donaldson catheter is draining well and the urine is clear. Results/Medications Result Diagram: 04/23/19 0447 04/23/19 044 Home Meds Active Scripts Ciprofloxacin Hcl* (Ciprofloxacin Hcl*) 500 Mg Tablet, 500 MG PO BID for 7 Days, TAB Prov:KADE LAKHANI MD 04/22/19 Reported Medications Tamsulosin Hcl* (Flomax*) 0.4 Mg Cap.er.24h, 0.4 MG PO HS, CAP 04/22/19 Mirabegron (Myrbetriq) 50 Mg Tab.er.24h, 50 MG PO DAILY, TAB 04/22/19 Budesonide-Formoterol Fumarate* (Symbicort*) 80-4.5 Mcg Hfa.aer.ad, 2 PUFF INHALATION BID, BOTTLE 04/22/19 Finasteride* (Finasteride*) 5 Mg Tablet, 5 MG PO DAILY, TAB 04/22/19 Levothyroxine Sodium* (Levoxyl*) 112 Mcg Tablet, 112 MCG PO BEFORE BREAKFAST, #30 TAB 04/22/19 Valsartan* (Diovan*) 80 Mg Tablet, 80 MG PO DAILY, TAB 04/22/19 Cyanocobalamin* (Vitamin B12*) 500 Mcg Tab, 1000 MCG PO DAILY, TAB 04/22/19 Icosapent Ethyl (VASCEPA) 1 Gm Capsule, 2 GM PO BID, CAP 04/22/19 Rosuvastatin Calcium* (Crestor*) 10 Mg Tablet, 10 MG PO QHS, #30 TAB 04/22/19 Medications Current Medications IV Flush (NS 3 ml) 3 ml PER PROTOCOL IV Last administered on 04/22/19 22:00; Admin Dose 3 ML; Start 04/22/19 at 20:00 Acetaminophen (Tylenol Tab) 650 mg Q6H PRN PO .PAIN 1-3 OR TEMP Last administered on 04/24/19 17:50; Admin Dose 650 MG; Start 04/22/19 at 20:00 Morphine Sulfate (morphine) 2 mg Q4H PRN IV .SEVERE PAIN 7-10 Last administered on 04/25/19 18:20; Admin Dose 2 MG; Start 04/22/19 at 20:00 Famotidine (Pepcid Iv) 20 mg Q24H IV Last administered on 04/24/19 20:26; Admin Dose 20 MG; Start 04/22/19 at 21:00 Ceftriaxone Sodium 50 ml @ 100 mls/hr DAILY IVPB Last administered on 04/25/19 08:34; Admin Dose 100 MLS/HR; Start 04/22/19 at 20:30 Lorazepam (Ativan) 0.5 mg Q6H PRN IV AGITATION/ANXIETY Last administered on 04/25/19 16:57; Admin Dose 0.5 MG; Start 04/23/19 at 16:00 Haloperidol (Haldol) 5 mg Q6H PRN IM agitation Last administered on 04/25/19 15:57; Admin Dose 5 MG; Start 04/23/19 at 22:00 Sodium Biphosphate/ Sodium Phosphate (Fleet Enema) 133 ml DAILY PRN [place] CONSTIPATION; Start 04/24/19 at 09:00 Assessment/Plan Hospital Course (Demo Recall) This is an 83-year-old male who was brought to the emergency room earlier on April 22, 2019 because of difficulty urinating. A Donaldson catheter was inserted and the patient was thought to have cystitis. He was placed on Cipro and discharged home with the Donaldson catheter and the leg bag. The patient returned the same day to the emergency room because of bleeding. I was told that he accidentally pulled the catheter. Attempts by the emergency room staff and physician to insert a new catheter were not successful. The patient was bleeding from his urethra. I came in and saw the patient. I had a av specialist and the patient appeared to be confused and from the history he does have Alzheimer disease. His son who brought him to the hospital emergency room has left to work. After his admission I inserted a Donaldson catheter for him. And the catheter was draining well. However the patient pulled out the catheter again. CT scan of the abdomen and pelvis was done and that showed: 1. Bladder is partially filled and contains gas that may be from recent catheterization. Recommend correlation with the procedure history. In the absence of recent instrumentation, gas in the urinary bladder would be concerning for emphysematous cystitis. Recommend correlation with urinalysis. 2. Centrilobular ground-glass opacities at bilateral lung bases is concerning for multifocal bronchopneumonia. This is incompletely evaluated. 3. Cholelithiasis without evidence of complications. 4. Atherosclerosis of the abdominal aorta. 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 Please note that in the absence of intravenous contrast the study does not evaluate the patency of the vasculature. I did insert a 16 [place] Donaldson catheter for him yesterday with a 30 cc balloon which makes it more difficult for him to pull the catheter out. The catheter is still in good position and is draining clear urine. The patient may have tried to pull on it during the day. There is no bleeding in the catheter. The patient most likely will need to have an indwelling Donaldson catheter all the time as he is not able to urinate and his prostate is not large to cause his obstruction. In addition he does have Alzheimer disease and confusion. FABY SOLITARIO MD Apr 25, 2019 18:54
[2019-04-25 19:28] VITALS: BP 137/60; PULSE 87; RESP 18
[2019-04-25 20:00] VITALS: BP 147/68; PULSE 82; RESP 18
[2019-04-25] MEDS: FAMOTIDINE 20 MG INJ IV SCH (20:05)
[2019-04-25 22:00] VITALS: BP 155/70; PULSE 87; RESP 20
[2019-04-26] VITALS (14 sets, daily range): BP systolic 127–158; BP diastolic 59–74; PULSE 70–87; RESP 16–20
[2019-04-26] MEDS: BALSAM PERU/CASTOR OIL 60 GM TUBE TOP SCH (09:33)
[2019-04-26] MEDS: CEFTRIAXONE 1 GM/50 ML (PMX) 50 ML IVPB SCH (09:33)
--- NOTE | 2019-04-26 15:31 | PN ---
Date/Time of Note Date/Time of Note DATE: 04/26/19 TIME: 15:30 Assessment/Plan VTE Prophylaxis Risk score (from Ns)>0 risk: 7 SCD applied (from Ns): Yes Pharmacological prophylaxis: LMWH Lines/Catheters IV Catheter Type (from Nrsg): Saline Lock Urinary Cath still in place: Yes Reason Cath still needed: urinary retention, skin wounds contaminated by urine Assessment/Plan Hospital Course 1) urinary retention - joseph on hold per urology - monitor 2) UTI - IV antibiotics Result Diagram: 04/23/197 04/23/19446 Subjective 24 Hr Interval Summary Free Text/Dictation Patient pulled out his joseph again, on restraints Exam/Review of Systems Exam Vitals Vital Signs Date Temp Pulse Resp B/P (MAP) Pulse Ox O2 O2 Flow FiO2 Time Delivery Rate 04/26/19 98.2 77 17 148/70 98 14:00 (96) 04/23/19 Room Air 21:12 Intake and Output 04/25/19 04/25/19 04/26/19 1515:00 23:00 07:00 IntakeIntake Total 700 ml 490 ml 360 ml OutputOutput Total 300 ml 350 ml BalanceBalance 700 ml 190 ml 10 ml Constitutional: well developed Head: normocephalic, atraumatic Neck: supple Respiratory: diminished breath sounds Cardiovascular: regular rate and rhythm Gastrointestinal: soft, non-tender Extremities: normal pulses Medications Medication Current Medications IV Flush (NS 3 ml) 3 ml PER PROTOCOL IV Last administered on 04/22/19at 22:00; Admin Dose 3 ML; Start 04/22/19 at 20:00 Acetaminophen (Tylenol Tab) 650 mg Q6H PRN PO .PAIN 1-3 OR TEMP Last administered on 04/24/19at 17:50; Admin Dose 650 MG; Start 04/22/19 at 20:00 Morphine Sulfate (morphine) 2 mg Q4H PRN IV .SEVERE PAIN 7-10 Last administered on 04/25/19at 18:20; Admin Dose 2 MG; Start 04/22/19 at 20:00 Famotidine (Pepcid Iv) 20 mg Q24H IV Last administered on 04/25/19at 20:05; Admin Dose 20 MG; Start 04/22/19 at 21:00 Ceftriaxone Sodium 50 ml @ 100 mls/hr DAILY IVPB Last administered on 04/26/19at 09:33; Admin Dose 100 MLS/HR; Start 04/22/19 at 20:30 Lorazepam (Ativan) 0.5 mg Q6H PRN IV AGITATION/ANXIETY Last administered on 04/25/19at 23:20; Admin Dose 0.5 MG; Start 04/23/19 at 16:00 Haloperidol (Haldol) 5 mg Q6H PRN IM agitation Last administered on 04/25/19at 22:03; Admin Dose 5 MG; Start 04/23/19 at 22:00 Sodium Biphosphate/ Sodium Phosphate (Fleet Enema) 133 ml DAILY PRN [place] CONSTIPATION; Start 04/24/19 at 09:00 TAMIA CARO Apr 26, 2019 15:31
[2019-04-26] MEDS: FAMOTIDINE 20 MG INJ IV SCH (20:27)
--- NOTE | 2019-04-26 20:58 | CONS ---
Consult Date/Type/Reason Admit Date/Time Apr 24, 2019 at 08:24 Initial Consult Date 04/22/19 Type of Consultation: Urology Reason for Consultation Urinary retention and hematuria from pulling out Donaldson catheter Requesting Provider: YASIR JOSEPH Date/Time of Note DATE: 04/26/19 TIME: 20:55 Subjective Patient is confused and states at times that he wants to urinate even though he does have a Donaldson catheter in place Objective Vitals Vital Signs Date Temp Pulse Resp B/P (MAP) Pulse Ox O2 O2 Flow FiO2 Time Delivery Rate 04/26/19 97.5 80 18 133/62 96 19:32 (85) 04/23/19 Room Air 21:12 Intake and Output 04/25/19 04/25/19 04/26/19 1515:00 23:00 07:00 IntakeIntake Total 700 ml 490 ml 360 ml OutputOutput Total 300 ml 350 ml BalanceBalance 700 ml 190 ml 10 ml Exam The Donaldson catheter is draining well and the urine is clear. His PSA is 0.2. Results/Medications Result Diagram: 04/23/19 0447 04/23/19 044 Home Meds Active Scripts Ciprofloxacin Hcl* (Ciprofloxacin Hcl*) 500 Mg Tablet, 500 MG PO BID for 7 Days, TAB Prov:KADE LAKHANI MD 04/22/19 Reported Medications Tamsulosin Hcl* (Flomax*) 0.4 Mg Cap.er.24h, 0.4 MG PO HS, CAP 04/22/19 Mirabegron (Myrbetriq) 50 Mg Tab.er.24h, 50 MG PO DAILY, TAB 04/22/19 Budesonide-Formoterol Fumarate* (Symbicort*) 80-4.5 Mcg Hfa.aer.ad, 2 PUFF INHALATION BID, BOTTLE 04/22/19 Finasteride* (Finasteride*) 5 Mg Tablet, 5 MG PO DAILY, TAB 04/22/19 Levothyroxine Sodium* (Levoxyl*) 112 Mcg Tablet, 112 MCG PO BEFORE BREAKFAST, #30 TAB 04/22/19 Valsartan* (Diovan*) 80 Mg Tablet, 80 MG PO DAILY, TAB 04/22/19 Cyanocobalamin* (Vitamin B12*) 500 Mcg Tab, 1000 MCG PO DAILY, TAB 04/22/19 Icosapent Ethyl (VASCEPA) 1 Gm Capsule, 2 GM PO BID, CAP 04/22/19 Rosuvastatin Calcium* (Crestor*) 10 Mg Tablet, 10 MG PO QHS, #30 TAB 04/22/19 Medications Current Medications IV Flush (NS 3 ml) 3 ml PER PROTOCOL IV Last administered on 04/22/19 22:00; Admin Dose 3 ML; Start 04/22/19 at 20:00 Acetaminophen (Tylenol Tab) 650 mg Q6H PRN PO .PAIN 1-3 OR TEMP Last administered on 04/24/19 17:50; Admin Dose 650 MG; Start 04/22/19 at 20:00 Morphine Sulfate (morphine) 2 mg Q4H PRN IV .SEVERE PAIN 7-10 Last administered on 04/25/19 18:20; Admin Dose 2 MG; Start 04/22/19 at 20:00 Famotidine (Pepcid Iv) 20 mg Q24H IV Last administered on 04/26/19 20:27; Admin Dose 20 MG; Start 04/22/19 at 21:00 Ceftriaxone Sodium 50 ml @ 100 mls/hr DAILY IVPB Last administered on 04/26/19 09:33; Admin Dose 100 MLS/HR; Start 04/22/19 at 20:30 Lorazepam (Ativan) 0.5 mg Q6H PRN IV AGITATION/ANXIETY Last administered on 04/25/19 23:20; Admin Dose 0.5 MG; Start 04/23/19 at 16:00 Haloperidol (Haldol) 5 mg Q6H PRN IM agitation Last administered on 04/25/19 22:03; Admin Dose 5 MG; Start 04/23/19 at 22:00 Sodium Biphosphate/ Sodium Phosphate (Fleet Enema) 133 ml DAILY PRN [place] CONSTIPATION; Start 04/24/19 at 09:00 Assessment/Plan Hospital Course (Demo Recall) This is an 83-year-old male who was brought to the emergency room earlier on April 22, 2019 because of difficulty urinating. A Donaldson catheter was inserted and the patient was thought to have cystitis. He was placed on Cipro and discharged home with the Donaldson catheter and the leg bag. The patient returned the same day to the emergency room because of bleeding. I was told that he accidentally pulled the catheter. Attempts by the emergency room staff and physician to insert a new catheter were not successful. The patient was bleeding from his urethra. I came in and saw the patient. I had a lobster man and the patient appeared to be confused and from the history he does have Alzheimer disease. His son who brought him to the hospital emergency room has left to work. After his admission I inserted a Donaldson catheter for him. And the catheter was draining well. However the patient pulled out the catheter again. CT scan of the abdomen and pelvis was done and that showed: 1. Bladder is partially filled and contains gas that may be from recent catheterization. Recommend correlation with the procedure history. In the absence of recent instrumentation, gas in the urinary bladder would be concerning for emphysematous cystitis. Recommend correlation with urinalysis. 2. Centrilobular ground-glass opacities at bilateral lung bases is concerning for multifocal bronchopneumonia. This is incompletely evaluated. 3. Cholelithiasis without evidence of complications. 4. Atherosclerosis of the abdominal aorta. 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 Please note that in the absence of intravenous contrast the study does not evaluate the patency of the vasculature. I did insert a 16 K[place]anda Donaldson catheter for him yesterday with a 30 cc balloon which makes it more difficult for him to pull the catheter out. The catheter is still in good position and is draining clear urine. The patient does have Alzheimer disease and he may try to pull on the catheter when he is confused. His urine is now clear and his PSA is 0.2. Urologically may have to keep the Donaldson catheter in for now and may try in the future to discontinue it and see if he does void. FABY SOLITARIO MD Apr 26, 2019 20:58
[2019-04-26] MEDS: LORAZEPAM 2 MG INJ IV PRN (22:41)
[2019-04-27] VITALS (12 sets, daily range): BP systolic 122–166; BP diastolic 59–77; PULSE 68–94; RESP 17–19
[2019-04-27] MEDS: CEFTRIAXONE 1 GM/50 ML (PMX) 50 ML IVPB SCH (08:08)
[2019-04-27] MEDS: BALSAM PERU/CASTOR OIL 60 GM TUBE TOP SCH (08:09)
--- NOTE | 2019-04-27 15:22 | PN ---
Date/Time of Note Date/Time of Note DATE: 04/27/19 TIME: 15:21 Assessment/Plan VTE Prophylaxis Risk score (from Ns)>0 risk: 6 SCD applied (from Nsg): Yes Pharmacological prophylaxis: LMWH Lines/Catheters IV Catheter Type (from Nrsg): Saline Lock Urinary Cath still in place: Yes Reason Cath still needed: skin wounds contaminated by urine Assessment/Plan Hospital Course 1) urinary retention - joseph on hold per urology - monitor 2) UTI - IV antibiotics Result Diagram: 04/23/1944604/23/19446 Subjective 24 Hr Interval Summary Free Text/Dictation Patient is doing well, on restraints to prevent patient from pulling on joseph Exam/Review of Systems Exam Vitals Vital Signs Date Temp Pulse Resp B/P (MAP) Pulse Ox O2 O2 Flow FiO2 Time Delivery Rate 04/27/19 98.0 73 18 148/67 97 Room Air 14:00 (94) Intake and Output 04/26/19 04/26/19 04/27/19 1515:00 23:00 07:00 IntakeIntake Total 670 ml 400 ml 240 ml OutputOutput Total 500 ml 450 ml BalanceBalance 670 ml -100 ml -210 ml Constitutional: well developed Head: normocephalic, atraumatic Neck: supple Respiratory: diminished breath sounds Cardiovascular: regular rate and rhythm Gastrointestinal: soft, non-tender Extremities: normal pulses Medications Medication Current Medications IV Flush (NS 3 ml) 3 ml PER PROTOCOL IV Last administered on 04/22/19 22:00; Admin Dose 3 ML; Start 04/22/19 at 20:00 Acetaminophen (Tylenol Tab) 650 mg Q6H PRN PO .PAIN 1-3 OR TEMP Last administered on 04/24/19at 17:50; Admin Dose 650 MG; Start 04/22/19 at 20:00 Morphine Sulfate (morphine) 2 mg Q4H PRN IV .SEVERE PAIN 7-10 Last administered on 04/25/19 18:20; Admin Dose 2 MG; Start 04/22/19 at 20:00 Famotidine (Pepcid Iv) 20 mg Q24H IV Last administered on 04/26/19at 20:27; Admin Dose 20 MG; Start 04/22/19 at 21:00 Ceftriaxone Sodium 50 ml @ 100 mls/hr DAILY IVPB Last administered on 04/27/19 08:08; Admin Dose 100 MLS/HR; Start 04/22/19 at 20:30 Lorazepam (Ativan) 0.5 mg Q6H PRN IV AGITATION/ANXIETY Last administered on 04/26/19 22:41; Admin Dose 0.5 MG; Start 04/23/19 at 16:00 Haloperidol (Haldol) 5 mg Q6H PRN IM agitation Last administered on 04/25/19 22:03; Admin Dose 5 MG; Start 04/23/19 at 22:00 Sodium Biphosphate/ Sodium Phosphate (Fleet Enema) 133 ml DAILY PRN [place] CONSTIPATION; Start 04/24/19 at 09:00 TAMIA CARO Apr 27, 2019 15:22
--- NOTE | 2019-04-27 18:41 | CONS ---
Consult Date/Type/Reason Admit Date/Time Apr 24, 2019 at 08:24 Initial Consult Date 04/22/19 Type of Consultation: Urology Reason for Consultation Hematuria and urinary retention Requesting Provider: YASIR JOSEPH Date/Time of Note DATE: 04/27/19 TIME: 18:39 Subjective The patient is awake and his granddaughter is at his bedside. She tells me that he is confused on and off. Objective Vitals Vital Signs Date Temp Pulse Resp B/P (MAP) Pulse Ox O2 O2 Flow FiO2 Time Delivery Rate 04/27/19 98.7 77 17 136/66 96 Room Air 18:00 (89) Intake and Output 04/26/19 04/26/19 04/27/19 1515:00 23:00 07:00 IntakeIntake Total 670 ml 400 ml 240 ml OutputOutput Total 500 ml 450 ml BalanceBalance 670 ml -100 ml -210 ml Exam Donaldson catheter is in place and draining clear urine. Results/Medications Result Diagram: 04/23/19 0447 04/23/19446 Home Meds Active Scripts Ciprofloxacin Hcl* (Ciprofloxacin Hcl*) 500 Mg Tablet, 500 MG PO BID for 7 Days, TAB Prov:KADE LAKHANI MD 04/22/19 Reported Medications Tamsulosin Hcl* (Flomax*) 0.4 Mg Cap.er.24h, 0.4 MG PO HS, CAP 04/22/19 Mirabegron (Myrbetriq) 50 Mg Tab.er.24h, 50 MG PO DAILY, TAB 04/22/19 Budesonide-Formoterol Fumarate* (Symbicort*) 80-4.5 Mcg Hfa.aer.ad, 2 PUFF INHALATION BID, BOTTLE 04/22/19 Finasteride* (Finasteride*) 5 Mg Tablet, 5 MG PO DAILY, TAB 04/22/19 Levothyroxine Sodium* (Levoxyl*) 112 Mcg Tablet, 112 MCG PO BEFORE BREAKFAST, #30 TAB 04/22/19 Valsartan* (Diovan*) 80 Mg Tablet, 80 MG PO DAILY, TAB 04/22/19 Cyanocobalamin* (Vitamin B12*) 500 Mcg Tab, 1000 MCG PO DAILY, TAB 04/22/19 Icosapent Ethyl (VASCEPA) 1 Gm Capsule, 2 GM PO BID, CAP 04/22/19 Rosuvastatin Calcium* (Crestor*) 10 Mg Tablet, 10 MG PO QHS, #30 TAB 04/22/19 Medications Current Medications IV Flush (NS 3 ml) 3 ml PER PROTOCOL IV Last administered on 04/22/19 22:00; Admin Dose 3 ML; Start 04/22/19 at 20:00 Acetaminophen (Tylenol Tab) 650 mg Q6H PRN PO .PAIN 1-3 OR TEMP Last administered on 04/24/19 17:50; Admin Dose 650 MG; Start 04/22/19 at 20:00 Morphine Sulfate (morphine) 2 mg Q4H PRN IV .SEVERE PAIN 7-10 Last administered on 04/25/19 18:20; Admin Dose 2 MG; Start 04/22/19 at 20:00 Famotidine (Pepcid Iv) 20 mg Q24H IV Last administered on 04/26/19 20:27; Admin Dose 20 MG; Start 04/22/19 at 21:00 Ceftriaxone Sodium 50 ml @ 100 mls/hr DAILY IVPB Last administered on 04/27/19 08:08; Admin Dose 100 MLS/HR; Start 04/22/19 at 20:30 Lorazepam (Ativan) 0.5 mg Q6H PRN IV AGITATION/ANXIETY Last administered on 04/26/19 22:41; Admin Dose 0.5 MG; Start 04/23/19 at 16:00 Haloperidol (Haldol) 5 mg Q6H PRN IM agitation Last administered on 04/25/19 22:03; Admin Dose 5 MG; Start 04/23/19 at 22:00 Sodium Biphosphate/ Sodium Phosphate (Fleet Enema) 133 ml DAILY PRN [place] CONSTIPATION; Start 04/24/19 at 09:00 Assessment/Plan Hospital Course (Demo Recall) This is an 83-year-old male who was brought to the emergency room earlier on April 22, 2019 because of difficulty urinating. A Donaldson catheter was inserted and the patient was thought to have cystitis. He was placed on Cipro and discharged home with the Donaldson catheter and the leg bag. The patient returned the same day to the emergency room because of bleeding. I was told that he accidentally pulled the catheter. Attempts by the emergency room staff and physician to insert a new catheter were not successful. The patient was bleeding from his urethra. I came in and saw the patient. I had a chief of service and the patient appeared to be confused and from the history he does have Alzhei kolby disease. His son who brought him to the hospital emergency room has left to work. After his admission I inserted a Donaldson catheter for him. And the catheter was draining well. However the patient pulled out the catheter again. CT scan of the abdomen and pelvis was done and that showed: 1. Bladder is partially filled and contains gas that may be from recent catheterization. Recommend correlation with the procedure history. In the absence of recent instrumentation, gas in the urinary bladder would be concerning for emphysematous cystitis. Recommend correlation with urinalysis. 2. Centrilobular ground-glass opacities at bilateral lung bases is concerning for multifocal bronchopneumonia. This is incompletely evaluated. 3. Cholelithiasis without evidence of complications. 4. Atherosclerosis of the abdominal aorta. 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 Please note that in the absence of intravenous contrast the study does not evaluate the patency of the vasculature. I did insert a 16 [place] Donaldson catheter for him with a 30 cc balloon which makes it more difficult for him to pull the catheter out. The catheter is still in good position and is draining clear urine. The patient does have Alzheimer disease and he may try to pull on the catheter when he is confused. His urine is now clear and his PSA is 0.2. Urologically may have to keep the Donaldson catheter in for now and may try in the future to discontinue it and see if he does void. FABY SOLITARIO MD Apr 27, 2019 18:41
[2019-04-27] MEDS: FAMOTIDINE 20 MG INJ IV SCH (22:24)
[2019-04-28] VITALS (12 sets, daily range): BP systolic 126–162; BP diastolic 58–85; PULSE 70–87; RESP 17–19
[2019-04-28] MEDS: LORAZEPAM 2 MG INJ IV PRN ×2 (04:11→12:24)
[2019-04-28] MEDS: CEFTRIAXONE 1 GM/50 ML (PMX) 50 ML IVPB SCH (08:52)
[2019-04-28] MEDS: BALSAM PERU/CASTOR OIL 60 GM TUBE TOP SCH (08:53)
--- NOTE | 2019-04-28 12:46 | PN ---
Date/Time of Note Date/Time of Note DATE: 04/28/19 TIME: 12:45 Assessment/Plan VTE Prophylaxis Risk score (from Ns)>0 risk: 7 SCD applied (from Nsg): Yes Pharmacological prophylaxis: LMWH Lines/Catheters IV Catheter Type (from Nrs): Saline Lock Urinary Cath still in place: Yes Reason Cath still needed: skin wounds contaminated by urine Assessment/Plan Hospital Course 1) urinary retention - joseph on hold per urology - monitor 2) UTI - IV antibiotics Result Diagram: 04/28/1952304/28/19 05 Results 24hrs Laboratory Tests Test 04/28/19 05:24 04/28/19 09:00 White Blood Count 13.5 H Red Blood Count 4.82 Hemoglobin 13.5 L Hematocrit 41.4 L Mean Corpuscular Volume 85.9 Mean Corpuscular Hemoglobin 28.0 L Mean Corpuscular Hemoglobin Concent 32.6 Red Cell Distribution Width 13.2 Platelet Count 359 Mean Platelet Volume 9.4 Immature Granulocytes % 0.500 H Neutrophils % 68.5 Lymphocytes % 13.8 L Monocytes % 10.7 Eosinophils % 5.8 Basophils % 0.7 Nucleated Red Blood Cells % 0.0 Immature Granulocytes # 0.070 H Neutrophils # 9.3 H Lymphocytes # 1.9 Monocytes # 1.4 H Eosinophils # 0.8 H Basophils # 0.1 Nucleated Red Blood Cells # 0.0 Sodium Level 141 Potassium Level 3.5 Chloride Level 106 Carbon Dioxide Level 26 Anion Gap 9 Blood Urea Nitrogen 21 H Creatinine 1.05 Est Glomerular Filtrat Rate mL/min Glucose Level 97 Calcium Level 9.4 Urine Color YELLOW Urine Clarity SLIGHTLY CLOUDY A Urine pH 5.0 Urine Specific [place] 1.017 Urine Ketones TRACE A Urine Nitrite NEGATIVE Urine Bilirubin NEGATIVE Urine Urobilinogen NEGATIVE Urine Leukocyte Esterase 1+ H Urine Microscopic RBC 10 H Urine Microscopic WBC 9 H Urine Bacteria FEW A Urine Mucus FEW A Urine Hemoglobin 2+ H Urine Glucose NEGATIVE Urine Total Protein NEGATIVE Subjective 24 Hr Interval Summary Free Text/Dictation Patient is awake but not verbally responsive Exam/Review of Systems Exam Vitals Vital Signs Date Temp Pulse Resp B/P (MAP) Pulse Ox O2 O2 Flow FiO2 Time Delivery Rate 04/28/19 98.3 84 18 159/73 98 Room Air 10:00 (101) Intake and Output 04/27/19 04/27/19 04/28/19 1515:00 23:00 07:00 IntakeIntake Total 410 ml OutputOutput Total 350 ml 350 ml BalanceBalance 60 ml -350 ml Constitutional: well developed Head: normocephalic, atraumatic Neck: supple Respiratory: diminished breath sounds Cardiovascular: regular rate and rhythm Gastrointestinal: soft, non-tender Extremities: normal pulses Results Results 24hrs Laboratory Tests Test 04/28/19 05:24 04/28/19 09:00 White Blood Count 13.5 H Red Blood Count 4.82 Hemoglobin 13.5 L Hematocrit 41.4 L Mean Corpuscular Volume 85.9 Mean Corpuscular Hemoglobin 28.0 L Mean Corpuscular Hemoglobin Concent 32.6 Red Cell Distribution Width 13.2 Platelet Count 359 Mean Platelet Volume 9.4 Immature Granulocytes % 0.500 H Neutrophils % 68.5 Lymphocytes % 13.8 L Monocytes % 10.7 Eosinophils % 5.8 Basophils % 0.7 Nucleated Red Blood Cells % 0.0 Immature Granulocytes # 0.070 H Neutrophils # 9.3 H Lymphocytes # 1.9 Monocytes # 1.4 H Eosinophils # 0.8 H Basophils # 0.1 Nucleated Red Blood Cells # 0.0 Sodium Level 141 Potassium Level 3.5 Chloride Level 106 Carbon Dioxide Level 26 Anion Gap 9 Blood Urea Nitrogen 21 H Creatinine 1.05 Est Glomerular Filtrat Rate mL/min Glucose Level 97 Calcium Level 9.4 Urine Color YELLOW Urine Clarity SLIGHTLY CLOUDY A Urine pH 5.0 Urine Specific [place] 1.017 Urine Ketones TRACE A Urine Nitrite NEGATIVE Urine Bilirubin NEGATIVE Urine Urobilinogen NEGATIVE Urine Leukocyte Esterase 1+ H Urine Microscopic RBC 10 H Urine Microscopic WBC 9 H Urine Bacteria FEW A Urine Mucus FEW A Urine Hemoglobin 2+ H Urine Glucose NEGATIVE Urine Total Protein NEGATIVE Medications Medication Current Medications IV Flush (NS 3 ml) 3 ml PER PROTOCOL IV Last administered on 04/22/19at 22:00; Admin Dose 3 ML; Start 04/22/19 at 20:00 Acetaminophen (Tylenol Tab) 650 mg Q6H PRN PO .PAIN 1-3 OR TEMP Last administered on 04/24/19at 17:50; Admin Dose 650 MG; Start 04/22/19 at 20:00 Morphine Sulfate (morphine) 2 mg Q4H PRN IV .SEVERE PAIN 7-10 Last administered on 04/25/19at 18:20; Admin Dose 2 MG; Start 04/22/19 at 20:00 Famotidine (Pepcid Iv) 20 mg Q24H IV Last administered on 04/27/19 22:24; Admin Dose 20 MG; Start 04/22/19 at 21:00 Ceftriaxone Sodium 50 ml @ 100 mls/hr DAILY IVPB Last administered on 04/28/19 08:52; Admin Dose 100 MLS/HR; Start 04/22/19 at 20:30 Lorazepam (Ativan) 0.5 mg Q6H PRN IV AGITATION/ANXIETY Last administered on 04/28/19 12:24; Admin Dose 0.5 MG; Start 04/23/19 at 16:00 Haloperidol (Haldol) 5 mg Q6H PRN IM agitation Last administered on 04/25/19 22:03; Admin Dose 5 MG; Start 04/23/19 at 22:00 Sodium Biphosphate/ Sodium Phosphate (Fleet Enema) 133 ml DAILY PRN [place] CONSTIPATION; Start 04/24/19 at 09:00 TAMIA CARO Apr 28, 2019 12:46
[2019-04-28] MEDS: FAMOTIDINE 20 MG INJ IV SCH (20:31)
[2019-04-29] VITALS (12 sets, daily range): BP systolic 125–166; BP diastolic 60–76; PULSE 64–80; RESP 16–20
[2019-04-29] MEDS: BALSAM PERU/CASTOR OIL 60 GM TUBE TOP SCH (09:28)
[2019-04-29] MEDS: CEFTRIAXONE 1 GM/50 ML (PMX) 50 ML IVPB SCH (09:28)
--- NOTE | 2019-04-29 10:47 | PN ---
Date/Time of Note Date/Time of Note DATE: 04/29/19 TIME: 10:47 Assessment/Plan VTE Prophylaxis Risk score (from Ns)>0 risk: 8 SCD applied (from Ns): Yes Pharmacological prophylaxis: LMWH Lines/Catheters IV Catheter Type (from Nrsg): Saline Lock Urinary Cath still in place: Yes Reason Cath still needed: skin wounds contaminated by urine Assessment/Plan Hospital Course 1) urinary retention - joseph on hold per urology - monitor 2) UTI - IV antibiotics Result Diagram: 04/28/1952304/28/19523 Subjective 24 Hr Interval Summary Free Text/Dictation Patient donig ok Exam/Review of Systems Exam Vitals Vital Signs Date Temp Pulse Resp B/P (MAP) Pulse Ox O2 O2 Flow FiO2 Time Delivery Rate 04/29/19 98.7 67 18 125/60 94 08:01 (81) 04/29/19 Room Air 04:00 Intake and Output 04/28/19 04/28/19 04/29/19 1515:00 23:00 07:00 IntakeIntake Total 410 ml 240 ml OutputOutput Total 400 ml 500 ml BalanceBalance 410 ml -160 ml -500 ml Constitutional: well developed Head: normocephalic, atraumatic Neck: supple Respiratory: diminished breath sounds Cardiovascular: regular rate and rhythm Gastrointestinal: soft, non-tender Extremities: normal pulses Medications Medication Current Medications IV Flush (NS 3 ml) 3 ml PER PROTOCOL IV Last administered on 04/22/19 22:00; Admin Dose 3 ML; Start 04/22/19 at 20:00 Acetaminophen (Tylenol Tab) 650 mg Q6H PRN PO .PAIN 1-3 OR TEMP Last administered on 04/24/19 17:50; Admin Dose 650 MG; Start 04/22/19 at 20:00 Morphine Sulfate (morphine) 2 mg Q4H PRN IV .SEVERE PAIN 7-10 Last administered on 04/25/19 18:20; Admin Dose 2 MG; Start 04/22/19 at 20:00 Famotidine (Pepcid Iv) 20 mg Q24H IV Last administered on 04/28/19 20:31; Admin Dose 20 MG; Start 04/22/19 at 21:00 Ceftriaxone Sodium 50 ml @ 100 mls/hr DAILY IVPB Last administered on 8/4/19at 09:28; Admin Dose 100 MLS/HR; Start 04/22/19 at 20:30 Lorazepam (Ativan) 0.5 mg Q6H PRN IV AGITATION/ANXIETY Last administered on 04/28/19at 12:24; Admin Dose 0.5 MG; Start 04/23/19 at 16:00 Haloperidol (Haldol) 5 mg Q6H PRN IM agitation Last administered on 04/25/19at 22:03; Admin Dose 5 MG; Start 04/23/19 at 22:00 Sodium Biphosphate/ Sodium Phosphate (Fleet Enema) 133 ml DAILY PRN [place] CONSTIPATION; Start 04/24/19 at 09:00 Clonidine (Catapres) 0.1 mg Q6H PRN PO ELEVATED BLOOD PRESSURE Last administered on 04/29/19at 05:51; Admin Dose 0.1 MG; Start 04/29/19 at 06:00 TAMIA CARO Apr 29, 2019 10:47
--- NOTE | 2019-04-29 19:40 | CONS ---
Consult Date/Type/Reason Admit Date/Time Apr 24, 2019 at 08:24 Initial Consult Date 04/22/19 Type of Consultation: Urology Reason for Consultation Gross hematuria after pulling out the Donaldson catheter and urinary retention Requesting Provider: YASIR JOSEPH Date/Time of Note DATE: 04/29/19 TIME: 19:35 Subjective Patient remains confused and he is restrained so he does not pull on the Donaldson catheter Objective Vitals Vital Signs Date Temp Pulse Resp B/P (MAP) Pulse Ox O2 O2 Flow FiO2 Time Delivery Rate 04/29/19 98.6 78 17 135/68 96 18:00 (90) 04/29/19 Room Air 04:00 Intake and Output 04/28/19 04/28/19 04/29/19 1515:00 23:00 07:00 IntakeIntake Total 410 ml 240 ml OutputOutput Total 400 ml 500 ml BalanceBalance 410 ml -160 ml -500 ml Exam Donaldson catheter is draining clear urine. Results/Medications Result Diagram: 04/28/1924 04/28/19523 Home Meds Active Scripts Ciprofloxacin Hcl* (Ciprofloxacin Hcl*) 500 Mg Tablet, 500 MG PO BID for 7 Days, TAB Prov:KADE LAKHANI MD 04/22/19 Reported Medications Tamsulosin Hcl* (Flomax*) 0.4 Mg Cap.er.24h, 0.4 MG PO HS, CAP 04/22/19 Mirabegron (Myrbetriq) 50 Mg Tab.er.24h, 50 MG PO DAILY, TAB 04/22/19 Budesonide-Formoterol Fumarate* (Symbicort*) 80-4.5 Mcg Hfa.aer.ad, 2 PUFF INHALATION BID, BOTTLE 04/22/19 Finasteride* (Finasteride*) 5 Mg Tablet, 5 MG PO DAILY, TAB 04/22/19 Levothyroxine Sodium* (Levoxyl*) 112 Mcg Tablet, 112 MCG PO BEFORE BREAKFAST, #30 TAB 04/22/19 Valsartan* (Diovan*) 80 Mg Tablet, 80 MG PO DAILY, TAB 04/22/19 Cyanocobalamin* (Vitamin B12*) 500 Mcg Tab, 1000 MCG PO DAILY, TAB 04/22/19 Icosapent Ethyl (VASCEPA) 1 Gm Capsule, 2 GM PO BID, CAP 04/22/19 Rosuvastatin Calcium* (Crestor*) 10 Mg Tablet, 10 MG PO QHS, #30 TAB 04/22/19 Medications Current Medications IV Flush (NS 3 ml) 3 ml PER PROTOCOL IV Last administered on 04/22/19 22:00; Admin Dose 3 ML; Start 04/22/19 at 20:00 Acetaminophen (Tylenol Tab) 650 mg Q6H PRN PO .PAIN 1-3 OR TEMP Last administered on 04/24/19 17:50; Admin Dose 650 MG; Start 04/22/19 at 20:00 Morphine Sulfate (morphine) 2 mg Q4H PRN IV .SEVERE PAIN 7-10 Last administered on 04/25/19 18:20; Admin Dose 2 MG; Start 04/22/19 at 20:00 Famotidine (Pepcid Iv) 20 mg Q24H IV Last administered on 04/28/19 20:31; Admin Dose 20 MG; Start 04/22/19 at 21:00 Ceftriaxone Sodium 50 ml @ 100 mls/hr DAILY IVPB Last administered on 04/29/19 09:28; Admin Dose 100 MLS/HR; Start 04/22/19 at 20:30 Lorazepam (Ativan) 0.5 mg Q6H PRN IV AGITATION/ANXIETY Last administered on 04/28/19 12:24; Admin Dose 0.5 MG; Start 04/23/19 at 16:00 Haloperidol (Haldol) 5 mg Q6H PRN IM agitation Last administered on 04/25/19 22:03; Admin Dose 5 MG; Start 04/23/19 at 22:00 Sodium Biphosphate/ Sodium Phosphate (Fleet Enema) 133 ml DAILY PRN NE CONSTIPATION; Start 04/24/19 at 09:00 Clonidine (Catapres) 0.1 mg Q6H PRN PO ELEVATED BLOOD PRESSURE Last administered on 04/29/19 05:51; Admin Dose 0.1 MG; Start 04/29/19 at 06:00 Cyanocobalamin (Vitamin B12) 1,000 mcg DAILY PO ; Start 04/30/19 at 09:00 Finasteride (Proscar) 5 mg DAILY PO ; Start 04/30/19 at 09:00 Levothyroxine Sodium (Synthroid) 112 mcg BEFORE BREAKFAST PO ; Start 8/5/19 at 07:00 Tamsulosin HCl (Flomax) 0.4 mg HS PO ; Start 04/29/19 at 21:00 Assessment/Plan Hospital Course (Demo Recall) This is an 83-year-old male who was brought to the emergency room earlier on April 22, 2019 because of difficulty urinating. A Donaldson catheter was inserted and the patient was thought to have cystitis. He was placed on Cipro and discharged home with the Donaldson catheter and a leg bag. The patient returned the same day to the emergency room because of bleeding because he accidentally pulled the catheter. Attempts by the emergency room staff and physician to insert a new catheter were not successful. The patient was bleeding from his ur ethra. I came in and saw the patient. I had a instrument tech and the patient appeared to be confused and from the history he does have Alzheimer disease. His son who brought him to the hospital emergency room had left to work. After his admission I inserted a Donaldson catheter for him. And the catheter was draining well. However the patient pulled out the catheter again. CT scan of the abdomen and pelvis was done and that showed: 1. Bladder is partially filled and contains gas that may be from recent catheterization. Recommend correlation with the procedure history. In the absence of recent instrumentation, gas in the urinary bladder would be concerning for emphysematous cystitis. Recommend correlation with urinalysis. 2. Centrilobular ground-glass opacities at bilateral lung bases is concerning for multifocal bronchopneumonia. This is incompletely evaluated. 3. Cholelithiasis without evidence of complications. 4. Atherosclerosis of the abdominal aorta. 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 Please note that in the absence of intravenous contrast the study does not evaluate the patency of the vasculature. I did insert a 16 Chinese Donaldson catheter for him with a 30 cc balloon which makes it more difficult for him to pull the catheter out. The catheter is still in good position and is draining clear urine. The patient does have Alzheimer disease and he may try to pull on the catheter when he is confused. His urine is now clear and his PSA is 0.2. I will have the Donaldson catheter removed at 6 AM Tuesday, April 30, 2019 and check his voiding and his postvoid residual. If he does void well and the postvoid residual is minimal then he may be discharged without a Donaldson catheter. If however he is not able to urinate and he has urinary retention then will have to insert the new catheter with the hope that he does not pull it out. FABY SOLITARIO MD Apr 29, 2019 19:40
[2019-04-29] MEDS: FAMOTIDINE 20 MG INJ IV SCH (20:40)
[2019-04-29] MEDS ORDERED: TAMSULOSIN (SR) 0.4 MG CAP PO SCH (21:00)
[2019-04-29] MEDS: LORAZEPAM 2 MG INJ IV PRN (22:57)
[2019-04-30] VITALS (7 sets, daily range): BP systolic 135–180; BP diastolic 60–83; PULSE 66–74; RESP 16–18
[2019-04-30] MEDS ORDERED: LEVOTHYROXINE 112 MCG TAB PO SCH (07:00)
[2019-04-30] MEDS ORDERED: FINASTERIDE 5 MG TAB PO SCH (09:00)
[2019-04-30] MEDS ORDERED: CYANOCOBALAMIN 500 MCG TAB PO SCH (09:00)
[2019-04-30] MEDS: BALSAM PERU/CASTOR OIL 60 GM TUBE TOP SCH (09:58)
[2019-04-30] MEDS: CEFTRIAXONE 1 GM/50 ML (PMX) 50 ML IVPB SCH (09:58)
--- NOTE | 2019-04-30 13:44 | DS ---
Date/Time of Note Date/Time of Note DATE: 04/30/19 TIME: 13:43 Discharge Summary Admission/Discharge Info Admit Date/Time Apr 24, 2019 at 08:24 Discharge Date/Time 04/30/19 Discharge Diagnosis 1) urinary retention - joseph on hold per urology - monitor 2) UTI - IV antibiotics Patient Condition: Fair Consults urology Procedures none Hx of Present Illness Patient with dementia was admitted after being seen in the ER earlier in the day and was found to have urinary retention and uti. Patient had a joseph placed and sent home on antibiotics. Patient return and he seemingly had pulled out the joseph catheter. ER tried to reinsert without success and so he is admitted for further treatment. Hospital Course Patient with dementia was admitted after being seen in the ER earlier in the day and was found to have urinary retention and uti. Patient had a joseph placed and sent home on antibiotics. Patient return and he seemingly had pulled out the joseph catheter. ER tried to reinsert without success and so he is admitted for further treatment. Patient will need further antibiotics but is stable to go to SNF to continue treatment. 1) urinary retention - joseph on hold per urology - monitor 2) UTI - IV antibiotics Home Meds Active Scripts Ciprofloxacin Hcl* (Ciprofloxacin Hcl*) 500 Mg Tablet, 500 MG PO BID for 7 Days, TAB Prov:KADE LAKHANI MD 04/22/19 Reported Medications Tamsulosin Hcl* (Flomax*) 0.4 Mg Cap.er.24h, 0.4 MG PO HS, CAP 04/22/19 Mirabegron (Myrbetriq) 50 Mg Tab.er.24h, 50 MG PO DAILY, TAB 04/22/19 Budesonide-Formoterol Fumarate* (Symbicort*) 80-4.5 Mcg Hfa.aer.ad, 2 PUFF INHALATION BID, BOTTLE 04/22/19 Finasteride* (Finasteride*) 5 Mg Tablet, 5 MG PO DAILY, TAB 04/22/19 Levothyroxine Sodium* (Levoxyl*) 112 Mcg Tablet, 112 MCG PO BEFORE BREAKFAST, #30 TAB 04/22/19 Valsartan* (Diovan*) 80 Mg Tablet, 80 MG PO DAILY, TAB 04/22/19 Cyanocobalamin* (Vitamin B12*) 500 Mcg Tab, 1000 MCG PO DAILY, TAB 04/22/19 Icosapent Ethyl (VASCEPA) 1 Gm Capsule, 2 GM PO BID, CAP 04/22/19 Rosuvastatin Calcium* (Crestor*) 10 Mg Tablet, 10 MG PO QHS, #30 TAB 04/22/19 Primary Care Provider Not On Staff Doctor TAMIA CARO Apr 30, 2019 13:44
== END 2019-04-30 16:30 | DRG 699 ==
LOC: E/R 14:49 → 2NE 18:15 → OBSVTOIN 04-24 08:24
PROVIDERS: ADMIT Internal Medicine; ATTEND Internal Medicine
DX: T83.83XA Hemorrhage due to genitourinary prosthetic devices, implants and grafts, initial encounter (principal); N39.0 Urinary tract infection, site not specified; R31.0 Gross hematuria; R33.9 Retention of urine, unspecified; F03.90 Unspecified dementia, unspecified severity, without behavioral disturbance, psychotic disturbance, mood disturbance, and anxiety
CPT/HCPCS: 36415; 74176; 80048; 80053; 81001; 81003; 83036; 83605; 83690; 84153; 84154; 85025; 85610; 85730; 87086; 97116; 97162; 97530; G0378; J0696; J1630; J2060; J2270